=== PATIENT | male | born 1955 | race Caucasian/White ===

== ENCOUNTER → 2017-10-22 | Outpatient (CLI) | payer OTHER ==
[2017-10-22 08:32] LABS: HEMATOCRIT 48.9 % (42.0-52.0); HEMOGLOBIN 16.1 gm/dL (14.0-18.0); MCH 29.3 pg (26.0-34.0); MCHC 32.9 g/dL (28.0-37.0); RBC 5.49 mil/uL (4.50-6.00); RDW 13.5 % (10.5-14.5); WBC 6.5 thou/uL (4.0-11.0)
[2017-10-22 09:02] LABS: CALCIUM 8.9 mg/dL (8.5-10.1); POTASSIUM 4.7 mmol/L (3.5-5.1)
[2017-10-22 09:08] LABS: ALBUMIN 3.8 g/dL (3.4-5.0); TOTAL BILIRUBIN 0.6 mg/dL (<0.1-1.0); TOTAL PROTEIN 6.3 g/dL (6.4-8.2)
== END ==
LOC: LABMALL 08:03
PROVIDERS: Internal Medicine Cardiovascular Disease
DX: I48.0 Paroxysmal atrial fibrillation (principal)

== ENCOUNTER → 2018-05-01 | Outpatient (CLI) | payer OTHER ==
[~2018-05-01] MED LIST: ASPIR 8181 MG PO; BYSTOLIC 5 MG5 M1 PO; FLECAINIDE ACET50 M1 PO; PRADAXA150 MG PO
== END ==
LOC: RAD 13:54
DX: R06.00 Dyspnea, unspecified (principal)

== ENCOUNTER 2018-05-23 06:34 | Observation (INO) | payer OTHER ==
[~2018-05-23] VITALS: Ht 180.3 cm; Wt 89.8 kg
[2018-05-23] VITALS (8 sets, daily range): BP systolic 121–132; BP diastolic 58–86
--- NOTE | ~2018-05-23 | P ---
[facility] [place] [address] PROCEDURE REPORT Name: MANJINDER PARR Room #: 212-P [facility].#: [id number] Admission: 05/23/18 Attend Phys: Nathanael Theodore MD Discharge: Date of : 55 Report #: [id number] THIS REPORT FOR: //name// CC: Annette Theodore PREOPERATIVE DIAGNOSIS: Paroxysmal atrial fibrillation. POSTOPERATIVE DIAGNOSIS: Paroxysmal atrial fibrillation. HISTORY: The patient is a 62-year-old with history of paroxysmal atrial fibrillation, status post ablation back in November who has continued to have frequent episodes of AFib as evidenced by a recent cardiac rehab nurse. He is here for repeat ablation. PROCEDURES PERFORMED: 1. AFib ablation, CPT code 41608. 2. 3D mapping, CPT code 45531. 3. Intracardiac echo, CPT code 01052. 4. Second pathway ablation, CPT code 18037. ANESTHESIA: The patient underwent general anesthesia with no anesthesia related complications. DESCRIPTION OF PROCEDURE: The patient underwent informed consent. We discussed the details of the procedure including the risks, which include but not limited to bleeding, infection, vascular damage as well as stroke and OK. He understood these risks and is willing to proceed. The patient was brought to the EP laboratory in a fasting and unsedated state and prepped and draped in sterile fashion. Of note, prior to the ablation, he had gone into atrial fibrillation in the preprocedure suite. Once in the EP lab, he converted to normal sinus rhythm on his own. Next, I obtained access to the bilateral femoral veins after administering lidocaine. I placed a two 6-Maldivian short sheath in the right femoral vein and a 7-Maldivian and 9-Maldivian short sheath in the left femoral vein using the modified Seldinger technique. Next, under fluoroscopy, I placed a decapolar catheter easily in the coronary sinus and ice catheter into the right atrium. I then used CartoSound to create a 3D geometry of the left atrium. There was evidence of a left superior and inferior pulmonary veins that almost appeared to have a common ostium. Then, there was a right superior and right inferior pulmonary vein and there was also a right middle pulmonary vein. These echo images were merged with the cardiac CT scan. Next, a transseptal was performed using an SL1 sheath and [place] needle. I was able to cross via the prior transseptal site. I placed a Lasso catheter into the left atrium and then we created a quick voltage map of the left atrium. There was evidence that the left superior pulmonary vein was reconnected along the ridge between the pulmonary vein and the left atrial [address] [address] PROCEDURE REPORT Name: MANJINDER PARR Room #: 212-P [facility] M.R.#: [id number] Admission: 05/23/18 Attend Phys: Nathanael Theodore MD Discharge: Date of : 55 Report #: [id number] appendage. The left inferior pulmonary vein appeared to be isolated. The right superior pulmonary vein was also isolated and so was the right middle pulmonary vein. The right inferior pulmonary vein was reconnected. Next, I performed a second transseptal using another SL1 sheath and then a [employer] Vyas SmartTouch ThermoCool ablation catheter. Next, I performed ablation along the roof and ridge of the left superior pulmonary vein and there was evidence of isolation afterwards. There was evidence of entrance and exit block. I re-interrogated the left inferior vein and this was clearly isolated. I then turned my attention to the right inferior pulmonary vein and this was reconnected along the superior and posterior segments of the vein. Ablation at this site for about 30 seconds resulted in isolation of the vein. I performed additional ablation at this site to reinforce the area of isolation and isolated some of the electrical signals along the superior aspect of the vein. Next to ensure that the vein was isolated, I gave 12 of adenosine, which did show a change in heart rate, but there was no evidence of reconnection of the inferior pulmonary vein. A second voltage map was then performed showing that now this entire area was isolated and there was no signals and we checked all the veins and there was evidence of entrance and exit block. Next, I pulled my sheaths to the right atrium and I performed atrial flutter ablation. Atrial flutter ablation: Next, prior to ablation, there was evidence of a transisthmus conduction time of 48 milliseconds. I performed ablation using the SmartTouch ThermoCool at around 6 o'clock along the tricuspid annulus. I performed a continuous drag lesion. There was still not evidence of isolation. I performed another ablation line at the same area, but I did not demonstrate bidirectional block. I therefore changed to a ramp sheath and placed a [place] live wire catheter to measure the conduction across the isthmus. I performed additional ablation along the prior lesion set and performed some ablation more laterally. Finally, I performed a more septal ablation line. Post-ablation, the transisthmus conduction time was 120 milliseconds when pacing from CS 9-10. The transisthmus conduction time pacing from Halo 1, 2 was 134 milliseconds. Although the transisthmus conduction time was not very long post-ablation, it had doubled compared to where we started. As such, the procedure was concluded. The patient received systemic protamine and once the ACT was within acceptable range, all catheters and sheaths were pulled. Hemostasis was obtained and the patient awoke neurologically and hemodynamically intact with no complications. CONCLUSIONS: 1. Successful isolation of the left superior pulmonary vein and the right inferior pulmonary vein. 2. Persistence of isolation of the left inferior and right superior and right [facility] [address] [place] [address] PROCEDURE REPORT Name: MANJINDER PRAR Room #: 212-P [facility] Shaw#: [id number] Admission: 05/23/18 Attend Phys: Nathanael Theodore MD Discharge: Date of : 55 Report #: [id number] middle pulmonary veins from the prior ablation. 3. Successful atrial flutter ablation with evidence of bidirectional block. By: [id number] Nathanael Theodore MD /nt
[2018-05-23 07:28] LABS: ABSOLUTE NEUTROPHILS 4.8 thou/uL (1.4-8.2); BASOPHILS 1.3 % (0.0-2.0); EOSINOPHILS 2.8 % (0.0-3.0); HEMATOCRIT 49.8 % (42.0-52.0); LYMPHOCYTES 23.7 % (24.0-44.0); MCH 29.9 pg (26.0-34.0); MCHC 34.1 g/dL (28.0-37.0); MCV 87.8 fL (80.0-100.0); MONOCYTES 10.7 % (1.0-8.0); PLATELET COUNT 196 thou/uL (150-400); POLYS 61.5 % (36.0-66.0); RBC 5.67 mil/uL (4.50-6.00); RDW 13.5 % (10.5-14.5); WBC 7.8 thou/uL (4.0-11.0)
[2018-05-23 07:37] LABS: CALCIUM 8.9 mg/dL (8.5-10.1); CREATININE 1.1 mg/dL (0.7-1.3); POTASSIUM 4.1 mmol/L (3.5-5.1)
[2018-05-23 07:42] LABS: ALBUMIN 3.7 g/dL (3.4-5.0); APTT 26.4 Seconds (24.5-32.8); PROTIME 10.2 Seconds (9.3-11.4); TOTAL BILIRUBIN 0.5 mg/dL (<0.1-1.0); TOTAL PROTEIN 6.5 g/dL (6.4-8.2)
[2018-05-24 04:22] VITALS: BP 103/48
[2018-05-24 07:45] VITALS: BP 122/57
[2018-05-24 08:37] VITALS: BP 122/57
[2018-05-24 08:44] VITALS: BP 122/57
[2018-05-24 09:20] VITALS: BP 122/57
== END 2018-05-24 10:57 | disposition home or self-care (01) ==
LOC: CATH 06:34 → 2N 06:52 → CATH 13:27 → 2N 05-24 10:57
PROVIDERS: Internal Medicine Cardiovascular Disease
DX: I48.0 Paroxysmal atrial fibrillation (principal); I48.92 Unspecified atrial flutter; I10 Essential (primary) hypertension; I25.84 Coronary atherosclerosis due to calcified coronary lesion; R06.00 Dyspnea, unspecified; F17.210 Nicotine dependence, cigarettes, uncomplicated; R53.83 Other fatigue; Z98.890 Other specified postprocedural states; Z72.89 Other problems related to lifestyle
CPT/HCPCS: 62110; 62900; 70005

== ENCOUNTER → 2020-05-04 | Outpatient (CLI) | payer OTHER | LOC: CAT 15:55 | DX: Z13.6 Encounter for screening for cardiovascular disorders (principal); I25.10 Atherosclerotic heart disease of native coronary artery without angina pectoris; E78.00 Pure hypercholesterolemia, unspecified ==